=== PATIENT | male | born 1995 | race Caucasian/White ===

== ENCOUNTER 2019-08-10 15:30 | Emergency (ER) | payer MEDICAID ==
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
[2019-08-10] MEDS ORDERED: Ondansetron 4 MG/2 ML SDV IVPUSH ONE (16:06)
[2019-08-10] MEDS ORDERED: Lactated Ringers 1,000 ML IV ONE (16:06)
[2019-08-10] MEDS ORDERED: Alum Hydrox/Mag Hydrox/Simeth 30 ML, Lidocaine 2% 15 ML PO ONE ×2 (16:06)
[2019-08-10] MEDS ORDERED: Pantoprazole 40 MG Tab.CR PO ONE (17:37)
[2019-08-10] MEDS ORDERED: Sucralfate Suspension 1 GM/10 ML Cup PO ONE ×2 (17:37→18:52)
[2019-08-10] MEDS ORDERED: Pantoprazole 40 MG Tab.CR PO SCH (18:00)
[2019-08-10] MEDS ORDERED: Famotidine 20 MG Tab PO ONE (18:35)
[2019-08-10] MEDS ORDERED: Sucralfate 1 GM Tab PO ONE (18:35)
[2019-08-10] MEDS ORDERED: Sucralfate Suspension 1 GM/10 ML Cup ONE (18:48)
[2019-08-11] MEDS ORDERED: Pantoprazole 40 MG Tab.CR PO ONE (17:37)
== END 2019-08-10 19:05 | disposition home or self-care (01) ==
LOC: JD.ED 15:30
DX: K21.9 Gastro-esophageal reflux disease without esophagitis (principal); F17.210 Nicotine dependence, cigarettes, uncomplicated; Z79.899 Other long term (current) drug therapy
CPT/HCPCS: 36415; 80053; 81001; 83690; 85007; 85027; 96361; 96374; 99285; A9270; J2405; J7120